=== PATIENT | female | born 1985 | race Caucasian/White ===

== ENCOUNTER → 2017-01-19 | Outpatient (CLI) | payer MEDICAID | LOC: FIMAGING 15:51 | PROVIDERS: ATTEND Family Medicine | DX: M84.351A Stress fracture, right femur, initial encounter for fracture (principal) ==

== ENCOUNTER → 2017-02-23 | Outpatient (CLI) | payer MEDICAID | LOC: BRMIMAGING 10:51 | PROVIDERS: ATTEND Internal Medicine | DX: Z13.820 Encounter for screening for osteoporosis (principal); M85.80 Other specified disorders of bone density and structure, unspecified site; M84.30XA Stress fracture, unspecified site, initial encounter for fracture ==

== ENCOUNTER → 2017-12-27 | Outpatient (CLI) | payer MEDICAID | LOC: BRMIMAGING 14:41 | PROVIDERS: ATTEND Family Medicine Sports Medicine | DX: Z13.820 Encounter for screening for osteoporosis (principal); N91.2 Amenorrhea, unspecified; M84.353 Stress fracture, unspecified femur; S42.009D Fracture of unspecified part of unspecified clavicle, subsequent encounter for fracture with routine healing ==

== ENCOUNTER → 2018-09-26 | Outpatient (CLI) | payer MEDICAID | LOC: FIMAGING 16:17 | PROVIDERS: ATTEND Internal Medicine Endocrinology, Diabetes & Metabolism | DX: N91.4 Secondary oligomenorrhea (principal); N85.8 Other specified noninflammatory disorders of uterus ==